=== PATIENT | male | born 1965 | race Caucasian/White ===

== ENCOUNTER 2024-04-13 21:39 | Inpatient (IN) | payer OTHER, SELFPAY ==
[2024-04-13] VITALS (7 sets, daily range): BP systolic 129–150; BP diastolic 65–108; BMI 28.0; BMI 27.8
[2024-04-13 17:16] LABS: % Basophils 0.1 % (0-2); % Eosinophils 0.5 % (0-6); % Immature Granulocytes 0.3 % (0-0.5); % Lymphocytes 34.5 % (20.5-51.1); % Monocytes 8.9 % (1.7-9.3); % Neutrophils 55.7 % (42.2-75.2); Absolute Eosinophils 0.1 10^3/uL (0-0.7); Absolute Lymphocytes 3.8 10^3/uL (1.2-3.4); Absolute Neutrophils 6.1 10^3/uL (1.4-6.5); Hematocrit 29.2 % (39.0-52.0); Hemoglobin 8.5 g/dL (13.0-18.0); Mean Corp Hgb Conc. 29.1 g/dL (33.0-37.0); Mean Corpuscular Hgb 22.2 pg (27.0-31.0); Mean Corpuscular Volume 76.2 fL (80.0-94.0); Nucleated Red Blood Cells % 0 % (-); Red Blood Cell Count 3.83 10^6/uL (4.70-6.10); Red Cell Dist. Width 15.9 % (11.5-14.5); White Blood Cell Count 10.9 10^3/uL (4.8-10.8)
[2024-04-13 17:26] LABS: INR 1.09
[2024-04-13 17:27] LABS: ALT (SGPT) 10 U/L (0-50); AST (SGOT) 15 U/L (17-59); Albumin 3.7 g/dl (3.5-5.0); Alkaline Phosphatase 71 U/L (38-126); Blood Urea Nitrogen 11 mg/dl (9-20); Calcium 9.3 mg/dl (8.4-10.2); Carbon Dioxide 26 mmol/L (22-30); Chloride 107 mmol/L (98-107); Estimated Creatinine Clearance 67 ml/min; Glucose 99 mg/dl (70-99); Potassium 5.1 mmol/L (3.5-5.1); Sodium 141 mmol/L (135-145); Total Bilirubin 0.1 mg/dl (0.2-1.3); Total Protein 7.4 g/dl (6.3-8.2); eGFR > 60.00
[2024-04-13 17:40] LABS: Mean Platelet Volume 8.3 fL (7.4-10.4); Platelet Count 624 10^3/uL (130-400)
--- NOTE | 2024-04-13 18:07 | ED.GENMED ---
History of Present Illness
General
Chief Complaint: Rectal Bleeding
Source: patient
Exam Limitations: none
Time Seen by Provider: 04/13/24 17:52
Nursing documentation reviewed up to this point in time: agreed with
History of Present Illness
History of Present Illness:
59 yo male w h/o colitis, GI bleed, seizures HIV pos, anxiety/panic d/o, presents from [facility] for rectal bleeding and abdominal pain he states he's had for 'weeks' but he just [facility] to [facility]. He
states it feels like his previous colitis episodes. Denies fever/chills. Denies n/v/d/c
Past History
Past History
ED Past Medical History: Seizures, Psychiatric (anxiety/panic d/o), Other (HIV pos) and Other (colitis)
ED Past Surgical History: Orthopedic
Social History
Tobacco: Non-smoker
Alcohol: None
Personal: Single
Living: [facility]
Review of Systems
Review of Systems
Allergies reviewed?: Yes
All Other Systems: ROS reviewed and negative except as documented in HPI and ROS
Constitutional: Denies fever or fatigue
Respiratory: Denies trouble breathing
Cardiac: Denies chest pain
ABD/GI: Reports abdominal pain and bloody stools; Denies nausea, vomiting, diarrhea or anorexia
: Denies dysuria or difficulty voiding
Musculoskeletal: Reports no symptoms
Skin: Reports no symptoms
Neurological: Reports no symptoms
Phy Exam
Physical Exam
Physical Exam:
GENERAL: No acute distress. A&Ox3.
CONSTITUTIONAL: Afebrile.
EYES: clear, conjunctivae normal
ENMT: moist mucus membranes, Pharynx nl
RESPIRATORY: Regular respirations, nonlabored, lungs clear.
CARDIOVASCULAR: Regular rate and rhythm, no murmurs, no rubs.
GI: Soft, generally tender, more so in LLQ, hyperactive BS
MUSCULOSKELETAL: Moves with ease. Well perfused.
SKIN: Warm, dry, pink
PSYCH: Normal mood and affect. Well kept, interactive and appropriate
NEUROLOGIC: Awake, alert and oriented. No focal neurological deficits
Course
Orders/Labs/Results
Orders:
Orders
04/13/24 Breakfast
Clear Liquid
Clear Liquids: No red liquids
04/13/24 17:05
Cardiac Monitoring- Treatment ONCE
IV Insert/Care/Rem.- Treatment PRN
O2 Therapy [RESP] Urgent
Titrate/Wean O2 to maintain O2 sat greater than (%): 93
Special Instructions: MAINTAIN CONTINOUS O2 SATS > OR = 93%
Pulse Ox/spot Check [RESP] Urgent
Quantity: 1
Special Instructions: ON ROOM AIR
04/13/24 17:07
Type+Screen Urgent
C-Reactive Protein Urgent
Comment: ADD ON
Complete Blood Count/With Diff Urgent
Comprehensive Metabolic Panel Urgent
Erythrocyte Sed Rate Urgent
Comment: ADD ON
Ferritin Urgent
Comment: ADD ON
Iron Urgent
Lipase Urgent
PTT Urgent
Prothrombin Time Urgent
Total Iron Binding Urgent
Vitamin B12 Urgent
Comment: ADD ON
04/13/24 18:05
Add On- LAB Urgent
Tests Added?: Lipase
0.9% Sodium Chloride 1000 ml [Nss] 1,000 ml IV BOLUS
04/13/24 18:06
CT Abd/Pel (IV only)-DH only Urgent
Comment:
Reason For Exam: rectal bleed, pain, hx colitis
04/13/24 20:12
Add On- LAB Urgent
Tests Added?: CRP, Sed rate
04/13/24 20:52
STOOL [C difficile Antigen & Toxins] Urgent
BUNNY Source: Feces/Stool
Specimen Description:
Stool Culture Urgent
BUNNY Source: Feces/Stool
Specimen Description:
04/13/24 20:56
Add On- LAB Urgent
Tests Added?: iron, ferritin, tibc, folate, vit b12
04/13/24 21:00
Flush (0.9% Sodium Chloride) [Flush (Nss)] See Dose Instructions IV PER PROTOCOL
Abnormal Lab Results
04/13/24
17:07
WBC 10.9 H 10^3/uL
(4.8-10.8)
RBC 3.83 L 10^6/uL
(4.70-6.10)
Hgb 8.5 L g/dL
(13.0-18.0)
Hct 29.2 L %
(39.0-52.0)
MCV 76.2 L fL
(80.0-94.0)
MCH 22.2 L pg
(27.0-31.0)
MCHC 29.1 L g/dL
(33.0-37.0)
RDW 15.9 H %
(11.5-14.5)
Plt Count 624 H 10^3/uL
(130-400)
Absolute Lymphs (auto) 3.8 H 10^3/uL
(1.2-3.4)
Absolute Monos (auto) 1.0 H 10^3/uL
(0.1-0.6)
ESR 93 H mm/hour
(0-20)
Total Bilirubin 0.1 L mg/dl
(0.2-1.3)
AST 15 L U/L
(17-59)
C-Reactive Protein 14.80 H mg/L
(0.0-10.00)
Lipase 457 H U/L
(23-300)
04/13/24 17:07
04/13/24 17:07
Vital Signs
Initial and Last Documented VS:
Initial Vital Signs
Temp Pulse Resp BP Pulse Ox
98.5 F 79 18 136/95 99
04/13/24 16:55 04/13/24 16:55 04/13/24 16:55 04/13/24 16:55 04/13/24 16:55
Last Documented Vital Signs
Temp Pulse Resp BP Pulse Ox
98.5 F 77 21 129/80 99
04/13/24 16:55 04/13/24 20:45 04/13/24 20:45 04/13/24 20:00 04/13/24 20:45
MDM/Problems Addressed
Differential Diagnosis Includes:
colitis, diverticulitis, GI bleed
MDM/Problems Addressed:
59 yo male w h/o colitis, GI bleed, seizures HIV pos, anxiety/panic d/o, presents from [facility] for rectal bleeding and abdominal pain he states he's had for 'weeks' but he just [facility] to [facility]. He
states it feels like his previous colitis episodes. Denies fever/chills. Denies n/v/d/c
Afebrile, NAD
6:00 PM:
CBC: Hemoglobin 8.5, nothing to compare. Indices indicate an element of chronic anemia
CMP normal
Lipase mildly elevated at 457
Rectal exam: Stool hematest negative
Patient has less than 3 stools per day, little or no blood, totally nontoxic appearing, no significant abdominal pain, no fever
7:45 PM:
CT abdomen pelvis with IV only contrast: Radiology report read: IMPRESSION:
1. Uncomplicated mild to moderate pancolitis, likely acute on chronic and of infectious/inflammatory etiology.
8:00 p.m.
Plan: Admit: Pancolitis, Hospitalist notified of admission.
Blood consent signed and scanned into chart
*Critical Care Note
Total Time (30-74mins, 75-104mins- exclusive of procedures): Not Applicable
ED Attending Note
-
Portions of this chart may have been created with voice recognition software.� Occasional wrong word or��sound alike� substitutions may have occurred due to the inherent limitations of voice recognition software.
Discharge Plan
Departure
Patient Disposition: Admit
Date of Disposition: 04/13/24
Time of Disposition: 20:10
Admit to: Med/Surg
Presentation/result/management discussed w/ accepting MD/DO: Hospitalist
Condition: Fair
Discharge Problem:
Pancolitis
Prescriptions:
No Action
clonazepam 1 mg Tablet
1 mg PO .TAPER
Patient Comments:
04/13/24: 1.5 mg BID 04/11/24-04/13/24, 1 mg BID 04/14/24-04/16/24, 0.5 mg BID 04/17/24-04/19/24, 0.5 mg HS 04/20/24-04/22/24
pantoprazole 40 mg Tablet,Delayed Release (Dr/Ec)
40 mg PO DAILY
lamotrigine [Lamictal] 100 mg Tablet
100 mg PO BID
Patient Comments:
04/13/24: take 1 tab twice a day from 04/10/24-04/17/24
lamotrigine [Lamictal ODT] 50 mg Tablet,Disintegrating
50 mg PO .TAPER
Patient Comments:
04/13/24: take 50 mg tab BID 04/17/24-04/24/24, take 50 mg tab QD 04/24/24-05/01/24
Biktarvy 50-200-25 mg Tablet
1 tab PO DAILY
Referrals:
[facility] [Family Provider] -
Interventions
Interventions:
*Risk Screen - Suicide Last Done: 04/13/24 16:55
*General Assessment Last Done: 04/13/24 16:55
*Neglect/Abuse Screening Last Done: 04/13/24 16:55
RG-Savhsx-Qhfzexgdsv Assessment Last Done: 04/13/24 17:08
ED- Cardiac Assessment Last Done: 04/13/24 17:08
ED- Pulmonary Assessment Last Done: 04/13/24 17:08
Discharge Date and Time
Print Language: ALGERIAN
[2024-04-13] MEDS: NSS 1000 IV (18:16)
[2024-04-13 18:37] LABS: Lipase 457 U/L (23-300)
[2024-04-13 20:32] LABS: Erythrocyte Sed Rate 93 mm/hour (0-20)
--- NOTE | 2024-04-13 21:03 | W.PN.UPDATE ---
Update Note
Progress Note Update
This note serves as an addendum to the H&P by master ocean yacht REJI Kim MALDONADO
HPI
59M poor historian in custody for a week in [facility] HX HIV on ART, Colitis seen at ER for eval of rectal bleed.
Acute rectal crampy rectal bleed almost daily since January
- described as bright red blood with diarrhea
- denied clot passage associated with diarrhea suspect hematochezia
- was POS C Diff and treated twice PO vanco liquid x 2 course ?
- no prior HX IBD
- Noted Colitis in PH
- admission Hgb is in 8s
- Never had Colonoscopy
ROS:
Denies fever, chills.
Denies n/v/d/c
PMHX
Seizures
Anxiety/panic d/o
HIV
Colitis
PSHX
Orthopedic
Social History
Tobacco: Non-smoker
Alcohol: None
Personal: Single
Living: longterm
Reviewed VS: unremarkable
PE
Gen: not toxic looking
HEENT: Pale complexion
Neck: supple
Lungs: CTA
Cor: RRR S1 S2
Abdomen: lowe abdominal tenderness . No peritonism
MEAL COOK: AA O3
MS: no edema
Psych: calm
Data
WCC 10.9
Hgb 8.5
Plt 624
ESR 93
CT Abd/Pel (IV only)
Uncomplicated mild to moderate pancolitis, likely acute on chronic and of infectious/inflammatory etiology.
NO PRIOR hospitalist admission:
ASSESSMENT & PLAN
CT evidence of pancolitis suspect infective vs Toxigenic with C Diff
Sub acute daily hematochezia with colicky abdomen since January
- described as bright red blood , denied clot passage associated hematochezia
- was POS C Diff and treated twice PO vanco liquid x 2 course ?
- no prior HX IBD
- Never had Colonoscopy
- NPO except Meds and sips on clear
- C Diff for stool
- Empiric PO vancomycin 250 qid
- Avoid PPI
- f/u H & H
- Blood consented by ER AP
- Obtain records form [facility]
- GI consult
HIV on Biktarvy
- did not recall CD 4 count
- follow with [facility]
- report compliance with ART
- check CD 4 count
- ID consult
HX Sz disorder but not on AEDs
- cont. Lamictal
HX anxiety with panic d/o
- cont. PO Clonazepam 1mg TID confirmed in PDMD
- IV Ativan PRN
DVT Px: SCD
Code: Full
IP TLM
[2024-04-13 21:09] LABS: Iron 30 ug/dl (49-181)
--- NOTE | 2024-04-13 21:12 | HPS.HSE ---
Family Physician
-
Family Physician: Facility [facility]
Chief Complaint
-
Abdominal Pain and Bloody Diarrhea
History of Present Illness
Patient is a 59 y/o male past medical history of HIV, Seizure Disorder and Panic Disorder who presents with abdominal pain and bloody diarrhea. Patient reports he has been experiencing symptoms for the last several months. He describes pain as
cramping particular in the lower regions. He reports being treated for C Diff twice at [facility] since January. He believes he was treated with oral vancomycin on both occasions. He was scheduled to have a colonoscopy but was unable to make the
appointment as he has been incarcerated at [facility] for the past week. He denies fever, sweats or chills.
Medical History
Past Medical History
Past Medical History: Reports Other
Additional Past Medical History:
HIV
Seizure Disorder
Panic Disorder
Past Surgical History: Reports Other
Additional Past Surgical History:
Left Foot Reconstruction
Social History
Tobacco: Non-smoker
Alcohol: None
Drug: Marijuana (Rarely)
Family History
Family History: Not pertinent
Allergies / Home Medications
Allergies reflects when Allergies were last updated in [employer].
Home Medications with original date entered in [employer]
Allergy/Medication List:
Allergies
Allergy/AdvReac Type Severity Reaction Status Date / Time
divalproex sodium Allergy Unknown Verified 04/13/24 17:05
[From Depakote]
olanzapine [From Zyprexa] Allergy Unknown Verified 04/13/24 17:05
quetiapine [From Seroquel] Allergy Unknown Verified 04/13/24 17:05
Home Medications
bictegravir 50 mg-emtricitabine 200 mg-tenofovir alafenam 25 mg tablet (Biktarvy) 1 tab PO DAILY 04/13/24
clonazepam 1 mg tablet 1 mg PO .TAPER 04/13/24
lamotrigine 100 mg tablet (Lamictal) 100 mg PO BID 04/13/24
lamotrigine 50 mg disintegrating tablet (Lamictal ODT) 50 mg PO .TAPER 04/13/24
pantoprazole 40 mg tablet,delayed release 40 mg PO DAILY 04/13/24
Review of Systems
-
A 12 point ROS was completed and negative except as noted: Yes
Constitutional: Denies Fever or Chills
Respiratory: Denies Cough or Trouble Breathing
Cardiac: Denies Chest Pain or Palpitations
Abdomen/GI: Reports See HPI
Physical Exam
Vital Signs
Vital Signs
Temp Pulse Resp BP Pulse Ox
98.5 F 77 21 129/80 99
04/13/24 16:55 04/13/24 20:45 04/13/24 20:45 04/13/24 20:00 04/13/24 20:45
Physical Exam
General: Comfortable, Conversant and Other (Appears quite pale)
HEENT: Anicteric and Moist mucous membranes
Respiratory: Clear and Non Labored Respirations
Cardiac: S1/S2 and Regular Rhythm
GI: Soft, Tender (Mild bilateral lower quadrants with rebound or guarding) and Other (Slightly hyperactive bowel sounds)
Rectal: Deferred by Provider
Musculoskeletal: No Clubbing, No Cyanosis and Other (Trace bilateral lower extremity edema)
Skin: Warm and Dry
Neuro: Awake, Alert, Oriented and Nonfocal/grossly intact
Psych: Calm
Laboratory Results
-
04/13/24 17:07
04/13/24 17:07
Laboratory Results
PT 14.0 Sec (11.4-14.6) 04/13/24 17:07
INR 1.09 04/13/24 17:07
APTT 27.0 Sec (23.4-35.0) 04/13/24 17:07
Total Bilirubin 0.1 mg/dl (0.2-1.3) L 04/13/24 17:07
AST 15 U/L (17-59) L 04/13/24 17:07
ALT 10 U/L (0-50) 04/13/24 17:07
Alkaline Phosphatase 71 U/L (38-126) 04/13/24 17:07
Lipase 457 U/L (23-300) H 04/13/24 17:07
Data Reviewed
-
CT Scan: Report Reviewed by me
Lab Data: Labs Reviewed by me
Impression/Plan
-
Pancolitis, high clinical suspicion for recurrent C Diff
-Check stool cultures and stool for C Diff
-Start empiric oral vancomycin
-Allow clear liquids
Acute Blood Loss Anemia secondary to GI Bleed
-Consult GI
-Check iron studies, vitamin b12 and folic acid
-Allow clear liquids
HIV Positive
-Consult ID
-Check CD 4
-Continue Biktarvy (or equivalent)
Panic Disorder
-Continue Clonazepam 1mg TID (Dose confirmed in PDMP)
Seizure Disorder
-Continue Lamictal (Patient reports 200 or 300mg as outpatient but currently on taper at alf - Patient's pharamcu was closed, will need to call in AM to confirm dose)
DVT proph: SCDS
Code Status: Full Code
[2024-04-13 21:18] LABS: Percent Saturation 7 % (20-50); Total Iron Binding Capacity 386 ug/dl (261-462)
[2024-04-13 21:47] LABS: Ferritin 5.8 ng/ml (17.9-464.0)
[2024-04-13 22:01] LABS: Vitamin B12 248 pg/ml (239-931)
[2024-04-13] MEDS: KLONOPIN 1 MG PO (22:51)
[2024-04-13] MEDS: FIRVANQ 250 MG PO (23:10)
[2024-04-13] MEDS: MELATONIN 5 MG PO (23:10)
--- NOTE | 2024-04-13 23:30 | PTCARENOTE ---
no delay received. aaox3. vss. po vanco given. melatonin ordered for sleep aide per request. po Klonopin given. two correction officers at bedside. pt shackled to bed. call witt in reach. will monitor.
[2024-04-14] MEDS: FIRVANQ 250 MG PO (05:49)
[2024-04-14 06:00] VITALS: BMI 27.3
[2024-04-14 06:26] LABS: Hematocrit 26.9 % (39.0-52.0); Hemoglobin 8.3 g/dL (13.0-18.0); Mean Corp Hgb Conc. 30.9 g/dL (33.0-37.0); Mean Corpuscular Hgb 22.4 pg (27.0-31.0); Mean Corpuscular Volume 72.7 fL (80.0-94.0); Mean Platelet Volume 8.3 fL (7.4-10.4); Platelet Count 591 10^3/uL (130-400); Red Cell Dist. Width 16.1 % (11.5-14.5)
[2024-04-14 07:00] LABS: Blood Urea Nitrogen 9 mg/dl (9-20); Calcium 8.8 mg/dl (8.4-10.2); Carbon Dioxide 26 mmol/L (22-30); Chloride 106 mmol/L (98-107); Estimated Creatinine Clearance 61 ml/min; Glucose 92 mg/dl (70-99); Magnesium 1.8 mg/dl (1.6-2.3); Potassium 4.6 mmol/L (3.5-5.1); Sodium 137 mmol/L (135-145); eGFR > 60.00
[2024-04-14 07:37] VITALS: BP 129/75
[2024-04-14] MEDS: KLONOPIN 1 MG PO ×2 (08:05→14:52)
[2024-04-14] MEDS: LAMICTAL 100 MG PO (08:05)
[2024-04-14] MEDS: BIKTARVY 50-200-25 MG TABLET 1 TABLET PO (08:06)
--- NOTE | 2024-04-14 08:44 | CON.GI ---
Addendum entered and electronically signed by Ned Dacosta MD 04/14/24 10:27:
Patient seen and examined, agree with nurse practitioner note. Patient presents with persistent diarrhea. He has had diarrhea for several months, with blood and mucus mixed in, reportedly treated for C. difficile in the past at [facility]. He
describes crampy abdominal pain that is associate with multiple bowel movements during the day. He is never had an EGD or colonoscopy in the past though has seen gastroenterology at [place] and was planned to have colonoscopy this week that was
postponed. He denies any significant fevers or chills. He denies any opportunistic infections in the past. He has been on Biktarvy chronically. On exam he has mild diffuse tenderness though otherwise is unremarkable. His blood work does show
signs of significant inflammatory with elevated sed rate, thrombocytosis, along with iron deficiency anemia. His CT scan does show pancolitis, and C. difficile here is negative. This is most consistent with ulcerative colitis, less likely Crohn's
disease, very unlikely to be opportunistic infection given normal white count and has been on Biktarvy chronically. At this point there is no emergent indication to start treatment, and is okay to DC from a GI standpoint, so that he can make his
court date tomorrow and follow-up as outpatient with GI as already planned to help expedite colonoscopy and likely start treatment. Agree with IV iron today prior to discharge.
Original Note:
Consultation
-
Date/Time Consultation Requested: 04/13/24 1586
Date/Time Consultation Performed: 04/14/24 8645
Requesting Provider: Shantel Quigley PA-C
Performing Provider: ASHLEY Abreu, Bryn Dacosta MD
Reason for Consultation: diarrhea
Medical History
Chief Complaint / HPI
Chief Complaint: abdominal pain and blood stools
History of Present Illness:
Pt is a 59yo currently at [facility] with hx HIV on Biktarvy, seizures, panic disorder several months of diarrhea and rectal bleeding. He was noted + for c-diff with treatment with Vanco x 2 courses in January but had some issues with filling medication and
unable to complete complete course . [facility] but unable to get to [facility] due to incarceration. Pt states since treatment he has had persistent diarrhea with bleeding. On
admission noted with WBC 10.9, hbg 8.5 platelets 624, CRP 14.8, with significant iron deficiency with iron 30, TIBC 386, sat [address] on admission with Uncomplicated mild to moderate pancolitis, likely acute on chronic and of
infectious/inflammatory etiology.
Pt admits to nausea without vomiting, and some chronic abdominal pain. He denies dysphagia, GERD, black stools. No hx EGD or colonoscopy in past. No NSAID use.
Past Medical History
Past Medical History: Seizures, Psychiatric (panic disorder ) and Other (HIV)
Past Surgical History: Other (foot reconstruction)
Social History
Tobacco: Non-Smoker
Alcohol: None
Drug: None
Living: Intermediate
Employment: Disabled (from foot issue and psych issues )
Family History
Family History: Reviewed & Not Pertinent
Allergies / Home Medications
Allergy/AdvReac Type Severity Reaction Status Date / Time
divalproex sodium Allergy Unknown Verified 04/13/24 17:05
[From Depakote]
olanzapine [From Zyprexa] Allergy Unknown Verified 04/13/24 17:05
quetiapine [From Seroquel] Allergy Unknown Verified 04/13/24 17:05
�Medication �Instructions �Recorded
bictegravir 50 mg-emtricitabine 1 tab PO DAILY 04/13/24
200 mg-tenofovir alafenam 25 mg
tablet (Biktarvy)
clonazepam 1 mg tablet 1 mg PO .TAPER 04/13/24
lamotrigine 100 mg tablet 100 mg PO BID 04/13/24
(Lamictal)
lamotrigine 50 mg disintegrating 50 mg PO .TAPER 04/13/24
tablet (Lamictal ODT)
pantoprazole 40 mg tablet,delayed 40 mg PO DAILY 04/13/24
release
Review of Systems
-
History Source: Patient
Constitutional: Reports Weight Loss (20 lbs over last few weeks)
EENT: Reports No Symptoms
Respiratory: Reports No Symptoms
Cardiac: Reports No Symptoms
Abdomen/GI: Reports Abdominal Pain, Nausea, Diarrhea and Bloody Stools
: Reports No Symptoms
Musculoskeletal: Reports No Symptoms
Skin: Reports No Symptoms
Neurological: Reports Weakness
Endocrine: Reports No Symptoms
Hematologic/Lymphatic: Reports Bleeding
Vital Signs
Temp Pulse Resp BP Pulse Ox
98.2 F 71 16 129/75 97
04/14/24 07:37 04/14/24 07:37 04/14/24 07:37 04/14/24 07:37 04/14/24 07:37
Physical Exam
Exam
General: Well Developed, Well Nourished, No Apparent Distress and Other (anxious with ongoing GI issues and current [facility] status )
HEENT: Normocephalic and Anicteric
Respiratory: Clear
Cardiac: Regular Rhythm
GI: Soft, Non Distended and Tender (mild diffuse )
Skin: Warm and Dry
Neuro: Awake, Alert and AO x 3
Psych: Calm
Results
WBC 10.0 10^3/uL (4.8-10.8) 04/14/24 06:10
Hgb 8.3 g/dL (13.0-18.0) L 04/14/24 06:10
Hct 26.9 % (39.0-52.0) L 04/14/24 06:10
MCV 72.7 fL (80.0-94.0) L 04/14/24 06:10
Plt Count 591 10^3/uL (130-400) H 04/14/24 06:10
Absolute Neuts (auto) 6.1 10^3/uL (1.4-6.5) 04/13/24 17:07
PT 14.0 Sec (11.4-14.6) 04/13/24 17:07
INR 1.09 04/13/24 17:07
APTT 27.0 Sec (23.4-35.0) 04/13/24 17:07
Sodium 137 mmol/L (135-145) 04/14/24 06:10
Potassium 4.6 mmol/L (3.5-5.1) 04/14/24 06:10
Chloride 106 mmol/L (98-107) 04/14/24 06:10
Carbon Dioxide 26 mmol/L (22-30) 04/14/24 06:10
BUN 9 mg/dl (9-20) 04/14/24 06:10
Creatinine 1.2 mg/dL (0.7-1.3) 04/14/24 06:10
Calcium 8.8 mg/dl (8.4-10.2) 04/14/24 06:10
Total Bilirubin 0.1 mg/dl (0.2-1.3) L 04/13/24 17:07
AST 15 U/L (17-59) L 04/13/24 17:07
ALT 10 U/L (0-50) 04/13/24 17:07
Alkaline Phosphatase 71 U/L (38-126) 04/13/24 17:07
Lipase 457 U/L (23-300) H 04/13/24 17:07
Diagnostic Image Results:
04/13/24 CT Abd/Pel (IV only)-DH only
1. Uncomplicated mild to moderate pancolitis, likely acute on chronic and of infectious/inflammatory etiology.
Prior GI Procedures:
EGD: none
Colonoscopy: none
Assessment / Plan
-
Pt is a 59yo currently at [facility] with hx HIV on Biktarvy, seizures, panic disorder several months of diarrhea and rectal bleeding. He was noted + for c-diff with treatment with Vanco x 2 courses in January but had some issues with filling medication and
unable to complete complete course . [facility] but unable to get to appt due to incarceration. Pt states since treatment he has had persistent diarrhea with bleeding. On
admission noted with WBC 10.9, hbg 8.5 platelets 624, CRP 14.8, with significant iron deficiency with iron 30, TIBC 386, sat [address] on admission with Uncomplicated mild to moderate pancolitis, likely acute on chronic and of
infectious/inflammatory etiology.
-diarrhea with rectal bleeding
-hx c-diff x 2 in January with partial treatment x 2 with oral vanco
-pancolitis on CT
-iron deficiency anemia
-leukocytosis
-thrombocytopenia
-mild CRP elevation
-current incarceration
other med problems:
-HIV on Biktarvy
-seizures
-panic disorder
PLAN:
etiology of diarrhea and rectal bleeding related to infectious etiology but would be concerned for underlying IBD with elevated Platelets, CRP and ongoing symptoms vs other with know hx HIV -- pt denies prolonged period of being off medication
current c-diff neg t/c stopping PO vanco
will need to review with Dr. Ch and Dr. Kinney-- ideally pt due for colonoscopy eval for eval for IBD vs other process
he is due to go to court tomorrow and hoping to be released with follow up closer to his home
he was scheduled last week for colonoscopy at [facility] in [place]
current clear diet
trend hbg, transfuse <7
will add dose IV iron for today
for ID eval with hx HIV
-
-
Thank you for consultation and allowing me to participate in the patient's care. Please call the parts sales counterperson GI physician during the after hours with any questions or concerns.
--- NOTE | 2024-04-14 11:33 | W.DS.TRANS ---
DC Summary - Manager Molecular
-
Discharge Instructions:
Discharge Diagnosis/Procedures Ulcerative colitis, anemia
Diet Low Residue
Activity As tolerated
Driving Restrictions As prior to admission
Bathing Restrictions None
Instructions:
Stand-Alone Forms:
Changes to Home Medications: No
Discharge Medications:
DC Medications w/original date entered in [employer]
bictegravir 50 mg-emtricitabine 200 mg-tenofovir alafenam 25 mg tablet (Biktarvy) 1 tab PO DAILY HIV 04/13/24
clonazepam 1 mg tablet 1 mg PO .TAPER Mental Health/Anxiety 04/13/24
lamotrigine 100 mg tablet (Lamictal) 100 mg PO BID Seizures 04/13/24
lamotrigine 50 mg disintegrating tablet (Lamictal ODT) 50 mg PO .TAPER Seizures 04/13/24
pantoprazole 40 mg tablet,delayed release 40 mg PO DAILY Gastrointestinal Issue 04/13/24
Home Medication Changes
Pending Results: No
[2024-04-14] MEDS: FERRLECIT 110 MG IV (13:21)
--- NOTE | 2024-04-14 13:37 | W.PN.HOSP.TC ---
Today's Communication/Plan
-
Resume diet
IV iron
Discharge
Assessment / Plan
Assessment / Plan
Gen-AAOx3, NAD
HEENT-NC, AT, anicteric, clear oral mm
Neck-supple
CV-reg, no M, +S1/S2
Lungs-clear B/L
Abd-soft, nondistended, mild diffuse tenderness
Ext-no edema
Musculoskeletal-no cyanosis, clubbing
Skin-warm and dry
Neuro-grossly non-focal
Psych-calm, cooperative
Pancolitis -suspect due to underlying ulcerative colitis. Appreciate GI input. Recommend outpatient follow-up with his display director. Diet resumed. GI service recommends discharge today.
No clinical evidence of pancreatitis despite mild lipase elevation.
Iron deficiency anemia, chronic - IV iron to be given today prior to discharge. Hemoglobin 8.3, baseline unknown. Will need outpatient follow-up.
HIV -continue HAART therapy.
Seizure disorder
Panic disorder
Full code
Dispo -stable for discharge back to skilled nursing today. Outpatient GI follow-up.
Anticipated Discharge: Today
Subjective/Interval History
-
Date of Service: April 14, 2024
Patient seen and examined. Still with abdominal cramping.
Objective Data
-
Labs:
Laboratory Results
04/14/24
06:10
WBC 10.0
Hgb 8.3 L
Hct 26.9 L
Plt Count 591 H
Sodium 137
Potassium 4.6
Chloride 106
Carbon Dioxide 26
BUN 9
Creatinine 1.2
Glucose 92
Calcium 8.8
Vital Signs:
Vital Signs
Temp Pulse Resp BP Pulse Ox
98.2 F 71 16 129/75 97
04/14/24 07:37 04/14/24 07:37 04/14/24 07:37 04/14/24 07:37 04/14/24 07:37
I&O
04/13/24 04/14/24 04/15/24
06:59 06:59 06:59
Intake Total 480 / 480
Balance 480 / 480
Review of Systems
-
History Source: Patient
All other systems: Reviewed and negative
[2024-04-14 14:51] VITALS: BP 131/73
--- NOTE | 2024-04-14 14:51 | CM ---
Reviewed chart, patient has been discharged. #report [phone] fax# [phone]
Plan: Case management will continue to follow and assist with discharge planning. Back to [facility].
[2024-04-15 17:00] LABS: CD4 % of Cells Analyzed 28 % (32-64); CD4 Absolute Count 1080 cells/uL (430-1800)
== END 2024-04-14 15:59 | DRG 386 ==
LOC: 3 WEST ACU 21:39
PROVIDERS: Physician Assistant Medical; ADMITTING PHYSICIAN Internal Medicine; ATTENDING PHYSICIAN Hospitalist; CONSULT PHYSICIAN Internal Medicine Gastroenterology; EMERGENCY PHYSICIAN Emergency Medicine
DX: K51.011 Ulcerative (chronic) pancolitis with rectal bleeding (principal); B20 Human immunodeficiency virus [HIV] disease; D62 Acute posthemorrhagic anemia; F41.0 Panic disorder [episodic paroxysmal anxiety]; G40.909 Epilepsy, unspecified, not intractable, without status epilepticus
CPT/HCPCS: 74177; 80048; 80053; 82607; 82728; 83540; 83550; 83690; 83735; 85025; 85027; 85610; 85652; 85730; 86140; 86361; 86850; 86900; 86901; 87045; 87046; 87070; 87324; 87427; 87449; 99285; J2916; Q9967

== ENCOUNTER 2024-12-07 14:47 | Emergency (ER) | payer SELFPAY ==
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
[2024-12-07 15:10] VITALS: BP 151/87
[2024-12-07 17:03] LABS: Urine Albumin Negative (Neg - Trace); Urine Bilirubin Negative (Negative); Urine Character Clear (Clear); Urine Glucose Negative (Negative); Urine Ketone 1+ (Negative); Urine Leukocyte Negative (Negative); Urine Nitrite Negative (Negative); Urine Occult Blood Negative (Negative); Urine Urobilinogen Negative (Neg - 1+)
[2024-12-07 17:09] LABS: Urine Color Straw
[2024-12-07 17:20] LABS: Amphetamines Positive (Negative); Barbiturates Negative (Negative); Benzodiazepines Negative (Negative); Buprenorphine Negative (Negative); Cocaine Negative (Negative); Marijuana Negative (Negative); Methadone Negative (Negative); Methamphetamines Positive (Negative); Opiates Negative (Negative); Phencyclidine Negative (Negative); Tricyclic Antidepressants Negative (Negative)
[2024-12-07 17:35] LABS: Fentanyl, Urine Negative (Negative)
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
== END 2024-12-07 17:54 | disposition home or self-care (01) ==
LOC: EMR 14:47
PROVIDERS: Physician Assistant; EMERGENCY PHYSICIAN Emergency Medicine
DX: S09.90XA Unspecified injury of head, initial encounter (principal); W08.XXXA Fall from other furniture, initial encounter; Z65.3 Problems related to other legal circumstances
CPT/HCPCS: 99285; 70450; 72125; 80306; 80307; 81003